=== PATIENT | male | born 1975 | race Asian ===

== ENCOUNTER 2024-10-02 00:17 | Emergency (ER) | payer OTHER ==
[~2024-10-02] VITALS: Ht 180.3 cm; Wt 87.0 kg
[2024-10-02 00:31] VITALS: O2SAT 99
[2024-10-02 02:20] VITALS: BP 133/61; PULSE 77; RESP 18; TEMP 36.94740; O2SAT 99
== END 2024-10-02 02:21 | disposition home or self-care (01) ==
LOC: ER 00:17
DX: Z02.79 Encounter for issue of other medical certificate (principal)
CPT/HCPCS: 99281